=== PATIENT | male | born 1995 | race Caucasian/White ===

== ENCOUNTER 2018-09-30 12:34 | Emergency (ER) | payer OTHER, SELFPAY ==
[2018-09-30 13:10] VITALS: BP 110/73; PULSE 75; RESP 16; TEMP 36.2; O2SAT 98
--- NOTE | 2018-09-30 13:48 | DI.RAD.S_ITS ---
PROCEDURE: XR LUMBAR SPINE 2-3V INDICATIONS: back pain, radiating down leg TECHNIQUE: 3 views of the lumbar spine were acquired. COMPARISON: None. FINDINGS: Bones: 5 [id number] vertebrae are present. There is normal bony alignment. No vertebral body compression fractures. No suspicious bony lesions. Soft tissues: Overlying bowel gas pattern is normal. No suspicious soft tissue calcifications. IMPRESSION: No fracture. No acute osseous lesion. If symptoms and/or clinical suspicion for pathology persists, evaluation with MRI may be helpful for further assessment. Dictated by: Liberty Jalloh MD, PhD on 09/30/2018 at 14:42 Approved by: Liberty Jalloh MD, PhD on 09/30/2018 at 14:43
[2018-09-30] MEDS: CYCLOBENZAPRINE 10 MG TABLET PO (15:44)
[2018-09-30] MEDS: HYDROCODONE/ACET 5/325 TABLET 1 TAB PO ×2 (15:44→16:33)
[2018-09-30] MEDS: LIDOCAINE PATCH 1 EACH ADH..PATCH TOP (15:45)
[2018-09-30] MEDS: KETOROLAC 60 MG/2 ML VIAL IM (15:45)
[2018-09-30 15:47] VITALS: BP 119/89; PULSE 69; RESP 20; O2SAT 100
--- NOTE | 2018-09-30 17:01 | ED.BACK ---
HPI - Back Pain/Injury <JESUS Mccann - Last Filed: 09/30/18 17:49> General Chief Complaint: Back Pain/Injury Stated Complaint: back pain Time Seen by Provider: 09/30/18 14:53 Source: patient and family Mode of arrival: ambulatory Limitations: no limitations History of Present Illness HPI Narrative: The patient is a 22-year-old male current smoker with history of lumbar strain who presents with a chief complaint of lower lower back pain, radiating up and down his back and legs. With lumbar strain a week and half ago and picked up a piece of wood at work, and felt a sudden severe pain. He denies any fevers nausea vomiting or diarrhea. Denies any incontinence of bladder, incontinence of stool or saddle anesthesia. He has not taken anything since the pain started work. Related Data Previous Rx's Medication Instructions Recorded cyclobenzaprine 10 mg tablet 10 mg PO BEDTIME #30 tab 09/21/18 cyclobenzaprine 10 mg PO TID PRN #30 tab 09/30/18 hydrocodone-acetaminophen 1 tab PO Q4-6H PRN #7 tab 09/30/18 ketorolac 10 mg PO TID PRN #14 tab 09/30/18 Allergies Allergy/AdvReac Type Severity Reaction Status Date / Time No Known Drug Allergies Allergy Verified 09/30/18 13:12 Review of Systems <JESUS Mccann - Last Filed: 09/30/18 17:49> Review of Systems GENERAL: Denies chills, fatigue, malaise, fever, sweats. HEENT: Denies sinus pain, ear pain, sore throat, difficulty swallowing, dizziness. RESPIRATORY: Denies dyspnea, cough, wheezing, hemoptysis, sputum. CARDIOVASCULAR: Denies chest pain, palpitations, orthopnea, edema, GASTROINTESTINAL: Denies nausea, vomiting, abdominal pain, diarrhea, constipation, melena. : Denies dysuria, frequency, incontinence, hematuria, urinary retention. MUSCULOSKELETAL: See HPI SKIN: Denies rash, skin lesions, or other NEUROLOGIC: Denies weakness, headache, numbness, change in speech, confusion, seizures, incoordination. PSYCHIATRIC: No concerning psychosocial issues. 12 point review of systems is negative except for those stated above PFSH <JESUS Mccann - Last Filed: 09/30/18 17:49> Medical History (Updated 09/30/18 @ 17:47 by CASTRO Mccann) Family history non-contributory (Acute) Social History Smoking Status: Current every day smoker Social History Smoking Status: Current every day smoker Exam <CASTRO Mccann - Last Filed: 09/30/18 17:49> Narrative Exam Narrative: GENERAL: This is a well-nourished, well-developed patient, appears uncomfortable HEAD: Atraumatic. Normocephalic. No temporal or scalp tenderness. EYES: Pupils equal round and reactive. Extraocular motions intact. No scleral icterus. No injection or drainage. ENT: Nose without bleeding, purulent drainage or septal hematoma. Throat without erythema, tonsillar hypertrophy or exudate. Uvula midline. Airway patent. NECK: Trachea midline. No JVD or lymphadenopathy. Supple, nontender, no meningeal signs. CARDIOVASCULAR: Regular rate and rhythm without murmurs, gallops, or rubs. RESPIRATORY: Clear to auscultation. Breath sounds equal bilaterally. No wheezes, rales, or rhonchi. GASTROINTESTINAL: Abdomen soft, non-tender, nondistended. No hepato-splenomegaly, or palpable masses. No guarding. EXTREMITIES: No clubbing, cyanosis, or edema. No joint tenderness, effusion, or edema noted. BACK: Nontender without deformity or crepitance. No flank tenderness. No pain to CT or L-spine palpation. Patient has pain to left paraspinal muscle palpation. NEURO: AOx3. No gross cranial nerve deficit. Strength is equal upper and lower extremities bilaterally. Stable gait. SKIN: No rash or erythema. No rash erythema ecchymosis laceration or abrasion noted the lower back. Initial Vital Signs Initial Vital Signs: Vital Signs Temperature 97.2 F L 09/30/18 13:10 Pulse Rate 75 09/30/18 13:10 Respiratory Rate 16 09/30/18 13:10 Blood Pressure 110/73 09/30/18 13:10 Pulse Oximetry 98 09/30/18 13:10 <Leticia Bingham DO - Last Filed: 10/01/18 06:12> Initial Vital Signs Initial Vital Signs: Vital Signs Temperature 97.2 F L 09/30/18 13:10 Pulse Rate 75 09/30/18 13:10 Respiratory Rate 16 09/30/18 13:10 Blood Pressure 110/73 09/30/18 13:10 Pulse Oximetry 98 09/30/18 13:10 Course <ZAHIDA Mccann-BC - Last Filed: 09/30/18 17:49> Orders Ordered: Discontinued Medications Hydrocodone Bitart/Acetaminophen ([place] 5/325) 1 tab PO NOW ONE Stop: 09/30/18 15:00 Last Admin: 09/30/18 15:44 Dose: 1 tab Hydrocodone Bitart/Acetaminophen ([place] 5/325) 1 tab PO NOW ONE Stop: 09/30/18 16:13 Last Admin: 09/30/18 16:33 Dose: 1 tab Cyclobenzaprine HCl (Flexeril) 10 mg PO NOW ONE Stop: 09/30/18 15:00 Last Admin: 09/30/18 15:44 Dose: 10 mg Ketorolac Tromethamine (Toradol) 60 mg IM NOW ONE Stop: 09/30/18 15:00 Last Admin: 09/30/18 15:45 Dose: 60 mg Lidocaine (Lidoderm) 1 each TOP NOW ONE Stop: 09/30/18 15:00 Last Admin: 09/30/18 15:45 Dose: 1 each Vital Signs - 8 hr 09/30/18 13:10 09/30/18 15:47 09/30/18 17:21 Temperature 97.2 F L Pulse Rate 75 69 80 Respiratory Rate 16 20 18 Blood Pressure 110/73 121/73 Blood Pressure [Right Arm] 119/89 Pulse Oximetry 98 100 100 <Leticia Bingham DO - Last Filed: 10/01/18 06:12> Orders Ordered: Discontinued Medications Hydrocodone Bitart/Acetaminophen ([place] 5/325) 1 tab PO NOW ONE Stop: 09/30/18 15:00 Last Admin: 09/30/18 15:44 Dose: 1 tab Hydrocodone Bitart/Acetaminophen ([place] 5/325) 1 tab PO NOW ONE Stop: 09/30/18 16:13 Last Admin: 09/30/18 16:33 Dose: 1 tab Cyclobenzaprine HCl (Flexeril) 10 mg PO NOW ONE Stop: 09/30/18 15:00 Last Admin: 09/30/18 15:44 Dose: 10 mg Ketorolac Tromethamine (Toradol) 60 mg IM NOW ONE Stop: 09/30/18 15:00 Last Admin: 09/30/18 15:45 Dose: 60 mg Lidocaine (Lidoderm) 1 each TOP NOW ONE Stop: 09/30/18 15:00 Last Admin: 09/30/18 15:45 Dose: 1 each Vital Signs - 8 hr 09/30/18 13:10 09/30/18 15:47 09/30/18 17:21 Temperature 97.2 F L Pulse Rate 75 69 80 Respiratory Rate 16 20 18 Blood Pressure 110/73 121/73 Blood Pressure [Right Arm] 119/89 Pulse Oximetry 98 100 100 [facility] - Back Pain/Injury <ZAHIDA Mccann-BC - Last Filed: 09/30/18 17:49> Imaging Data Lumbar spine x-ray: Radiologist's impression: [address] [id number] XRay Report Signed Patient: Cesario Roa RMR#: [id number] : 1995Acct:[id number] Age/Sex: 22 MDate of Service: 09/30/18 Loc: ED Accession Number: [id number] Procedure: XR lumbar spine 2-3V Ordering Provider: Leticia Bingham D.O. PROCEDURE: XR LUMBAR SPINE 2-3V INDICATIONS: back pain, radiating down leg TECHNIQUE: 3 views of the lumbar spine were acquired. COMPARISON: None. FINDINGS: Bones: 5 [id number] vertebrae are present. There is normal bony alignment. No vertebral body compression fractures. No suspicious bony lesions. Soft tissues: Overlying bowel gas pattern is normal. No suspicious soft tissue calcifications. IMPRESSION: No fracture. No acute osseous lesion. If symptoms and/or clinical suspicion for pathology persists, evaluation with MRI may be helpful for further assessment. Dictated by: Liberty Jalloh MD, PhD on 09/30/2018 at 14:42 Approved by: Liberty Jalloh MD, PhD on 09/30/2018 at 14:43 [facility] Narrative Medical decision making narrative: The patient is a 22-year-old male who presents with a chief complaint of back pain. He has a history of muscle spasm, and his current situation correlates with this history. He has a negative x-ray. He was treated in the emergency department muscle relaxers and pain medication with good response. He has no red flag symptoms such as fever incontinence of bowel, incontinence of bladder or saddle anesthesia. I discussed following up with PCP. I discussed come back to the ER for any acute concerns such as incontinence of bowel, incontinence of bladder or saddle anesthesia. I did give him a few days off of work as well as light duty for a week. No questions or concerns upon discharge. Ambulated well before discharge. Discharge Plan Departure Patient Disposition: Home Clinical Impression: Strain of lumbar region Qualifiers: Encounter type: subsequent encounter Qualified Code(s): S39.012D - Strain of muscle, fascia and tendon of lower back, subsequent encounter Discharge Date/Time: 09/30/18 17:21 Interventions: ED Discharge Assessment Last Done: 09/30/18 17:21 Instructions: DI for Back Spasm, DI for Back Strain or Sprain Activity Restrictions/Additional Instructions: Your x-rays showed no acute findings today. I have given you prescriptions of several pain medications. Do not take NSAIDs such as Aleve or ibuprofen with the Toradol. Be aware that [place] can be constipating and sedating. Please follow up with primary care provider. Please come back to the ER for any acute concerns such as incontinence of bowel, incontinence of bladder or groin numbness. Prescriptions: New cyclobenzaprine 10 mg tablet 10 mg PO TID PRN (Reason: muscle spasm) Qty: 30 RF: 0 hydrocodone-acetaminophen 5-325 mg tablet 1 tab PO Q4-6H PRN (Reason: pain) Qty: 7 RF: 0 ketorolac 10 mg tablet 10 mg PO TID PRN (Reason: pain) Qty: 14 RF: 0 No Action cyclobenzaprine 10 mg tablet 10 mg PO BEDTIME Qty: 30 RF: 0 Stand Alone Forms: Work Release Note <Leticia Bingham DO - Last Filed: 10/01/18 06:12> Cosign ED Attending Cosgiaature Attestation: I was immediately available in the department for consultation. This documentation has been reviewed and I agree with assessment and plan. Supervised by Leticia Bingham DO
[2018-09-30 17:21] VITALS: BP 121/73; PULSE 80; RESP 18; O2SAT 100
== END 2018-09-30 17:21 | disposition home or self-care (01) ==
PROVIDERS: Emergency Provider Nurse Practitioner Family
DX: S39.012D Strain of muscle, fascia and tendon of lower back, subsequent encounter (principal); X50.0XXD Overexertion from strenuous movement or load, subsequent encounter; Y99.0 Civilian activity done for income or pay
CPT/HCPCS: 72100; 96372; 99282; 99283; J1885